=== PATIENT | male | born 1965 | race Two or more races ===

== ENCOUNTER 2016-10-13 16:20 | Emergency (ER) | payer MEDICAID ==
[~2016-10-13] VITALS: Ht 165.1 cm; Wt 74.8 kg
--- NOTE | 2016-10-13 16:20 | NUR ---
17cm LACERATION TO R L E S/P CUT ON SKILL SAW AT WORK. NAD NOTED. PT AAO X4, AMB WITH STEADY GAIT. RR EVEN AND UNLABORED. VSS. PLACED IN GOWN AND MONITOR. PENDING MD FOR JANINE.
[2016-10-13] MEDS ORDERED: ONDANSETRON 4 MG TAB.RAPDIS SL STA (16:24)
[2016-10-13] MEDS ORDERED: TDAP [DIPH/PERTUSSIS/TET] 0.5 ML VIAL IM STA (16:24)
[2016-10-13] MEDS ORDERED: LIDOCAINE 1%-EPI 1:100,000 50 ML VIAL IJ STA (16:24)
[2016-10-13] MEDS ORDERED: HYDROCODONE/APAP 5/325MG 1 EACH TABLET PO STA (16:24)
[2016-10-13] MEDS ORDERED: HYDROCODONE/APAP 5/325MG 1 EACH TABLET ONE (16:32)
[2016-10-13] MEDS ORDERED: ONDANSETRON 4 MG TAB.RAPDIS ONE (16:34)
[2016-10-13] MEDS ORDERED: LIDOCAINE 0.5%-EPI 1:200,000 50 ML VIAL ONE (16:38)
[2016-10-13] MEDS ORDERED: LIDOCAINE 1%-EPI 1:100,000 20 ML VIAL ONE (16:41)
[2016-10-13] MEDS ORDERED: TDAP [DIPH/PERTUSSIS/TET] 0.5 ML VIAL IM ONE (17:03)
[2016-10-13] MEDS ORDERED: CEFAZOLIN 1 GM in IV D5W 50 ML IV SCH (17:30)
--- NOTE | 2016-10-13 17:40 | NUR ---
CALLED FOR ORTHO CONSULT - DR YUSUF BIOSTATISTICS DIRECTOR
--- NOTE | 2016-10-13 17:48 | NUR ---
CALLED DR IBRAHIM FOR CONSULT - ON THE PHONE WITH DR BOGGS
[2016-10-13 17:50] LABS: BASOPHILS # (AUTO) 0.1 /CMM (0.0-0.2); BASOPHILS % (AUTO) 0.5 % (0.0-2.0); EOSINOPHILS # (AUTO) 0.3 /CMM (0.0-0.7); EOSINOPHILS % (AUTO) 2.3 % (0.0-6.0); HEMATOCRIT 39 % (39-51); HEMOGLOBIN 13.4 g/dL (13.5-17.5); LYMPHOCYTES # (AUTO) 1.6 /CMM (0.8-4.8); LYMPHOCYTES % (AUTO) 12.4 % (20.0-44.0); MEAN CORPUSCULAR HEMOGLOBIN 31 PG (26.0-33.0); MEAN CORPUSCULAR HGB CONC 34 g/dl (31.0-36.0); MEAN CORPUSCULAR VOLUME 91 fL (80-96); MONOCYTES # (AUTO) 0.7 /CMM (0.1-1.30); MONOCYTES % (AUTO) 5.6 % (2.0-12.0); NEUTROPHILS # (AUTO) 10.4 /CMM (1.8-8.9); NEUTROPHILS % (AUTO) 79.2 % (43.0-81.0); PLATELET COUNT (AUTO) 237 /CMM (150-450); RDW COEFFICIENT OF VARIATION 11.7 (11.5-15.0); RED BLOOD CELL COUNT(AUTO) 4.31 MIL/uL (4.5-6.0); WHITE BLOOD COUNT (AUTO) 13.1 K/uL (4.3-11.0)
--- NOTE | 2016-10-13 17:52 | NUR ---
CALLED BACK [facility] OPERATOR FOR GENERAL SURGERY DR BRIONES
[2016-10-13 18:00] LABS: CALCIUM, SERUM 9.1 mg/dL (8.5-10.1); CREATININE 1.1 mg/dL (0.6-1.3)
--- NOTE | 2016-10-13 18:03 | NUR ---
CALLED DR DEVIKA MCPHERSON FOR CONSULT Addendum: 10/13/16 at 1803 by ROSA WAS UNABLE TO GET A HOLD OF DR MCPHERSON, LEFT MESSAGE ON [employer]
[2016-10-13 18:05] LABS: INR 0.98 (0.87-1.13); PROTHROMBIN TIME 10.2 SECS (9.5-12.7)
[2016-10-13 18:15] LABS: ALBUMIN 3.9 g/dL (3.4-5.0); BILIRUBIN,DIRECT 0.1 mg/dL (0.0-0.2); BILIRUBIN,TOTAL 0.4 mg/dL (0.2-1.0); TOTAL PROTEIN, SERUM 7.6 g/dL (6.4-8.2)
--- NOTE | 2016-10-13 18:29 | NUR ---
REPAGED , LEFT MESSAGE ON [employer]
--- NOTE | 2016-10-13 18:53 | NUR ---
CALLED PHARMACY FOR ABX
[2016-10-13] MEDS ORDERED: IV SET PRIMARY PUMP SET 1 EA INFUS.SET MC ONE (19:08)
--- NOTE | 2016-10-13 19:12 | NUR ---
RECEIVED REPORT FROM PATRICIA VALADEZ.
--- NOTE | 2016-10-13 19:36 | NUR ---
FAXING IMAGING REPORT AND FACE SHEET TO [facility]
--- NOTE | 2016-10-13 19:36 | NUR ---
CALLED [facility] AND SPOKE WITH ISIDRO, PRESENTED PT. PASSED THE PHONE TO DR BOGGS
[2016-10-13 19:42] VITALS: BP 148/99
--- NOTE | 2016-10-13 19:42 | NUR ---
PT IS ACCEPTED AT [facility]. ACCEPTING MD IS DR PAULA [phone]. [facility]#[id number] / NUMBER FOR NURSE REPORT
--- NOTE | 2016-10-13 19:43 | NUR ---
DR. BOGGS AT BEDSIDE SPEAKING TO PT AND FAMILY REGARDING POC.
--- NOTE | 2016-10-13 19:45 | NUR ---
CALLED [facility] FOR TRANSPORT ETA IS 60-90 MINUTES
[2016-10-13] MEDS ORDERED: MORPHINE SULFATE INJ 4 MG/ML DISP.SYRIN ONE (20:00)
[2016-10-13] MEDS ORDERED: ONDANSETRON HCL/PF 4 MG/2 ML VIAL ONE (20:01)
--- NOTE | 2016-10-13 20:13 | NUR ---
REPORT GIVEN TO PATRICIA AGUIRRE FROM [facility] [place] [facility] [phone]
--- NOTE | 2016-10-13 20:24 | NUR ---
REPORT GIVEN TO [facility] FOR [facility].
[2016-10-13] MEDS ORDERED: MORPHINE SULFATE INJ 2 MG/ML DISP.SYRIN IV ONE (20:30)
[2016-10-13] MEDS ORDERED: ONDANSETRON HCL/PF - ER 4 MG/2 ML VIAL IV ONE (20:30)
--- NOTE | 2016-10-13 20:37 | NUR ---
WOUND CARE DONE, POSTERIOR SHORT LEG SPLINT APPLIED.
--- NOTE | 2016-10-13 20:52 | NUR ---
PT TRASNFERED VIA GURNEY TO [facility] FOR HIGHER LEVER OF CARE WITH ALL PERSONAL BELONGINGS.
== END 2016-10-13 20:55 ==
LOC: ER 16:21
DX: S81.811A Laceration without foreign body, right lower leg, initial encounter (principal); M21.371 Foot drop, right foot; W27.0XXA Contact with workbench tool, initial encounter; Y93.89 Activity, other specified; Y92.89 Other specified places as the place of occurrence of the external cause; Y99.0 Civilian activity done for income or pay
CPT/HCPCS: 29515; 36415; 73590; 80048; 80076; 85025; 85730; 86850; 87081; 90471; 90715; 96365; 96375; 99285; A4606; A6253; A6403; J0690; J2270; J2405; J3490 ×2; J7060; Q0162; Z7610; A6402